=== PATIENT | male | born 2005 ===

== ENCOUNTER 2025-01-23 06:18 | Day surgery (SDC) | payer BC, SELFPAY ==
[2025-01-23] VITALS (8 sets, daily range): BP systolic 116–133; BP diastolic 58–66; BMI 29.5
[2025-01-23] MEDS: TYLENOL 1000 MG PO (09:29)
[2025-01-23] MEDS: NORMOSOL-R/PLASMALYTE-A 1000 IV (09:40)
== END 2025-01-23 13:55 | disposition home or self-care (01) ==
LOC: SDS 06:18
PROVIDERS: ATTENDING PHYSICIAN Otolaryngology
DX: J34.2 Deviated nasal septum (principal); J34.3 Hypertrophy of nasal turbinates
CPT/HCPCS: 30140; 30520